=== PATIENT | female | born 1945 | race Two or more races ===

== ENCOUNTER 2021-03-12 23:03 | Inpatient (IN) | payer MEDICARE, OTHER ==
[~2021-03-12] VITALS: Ht 149.9 cm; Wt 88.7 kg
--- NOTE | 2021-03-12 23:10 | NUR ---
BIBRA 89 FROM HOME FOR UNABLE TO FINISH SENTENCES PER FAMILY. DENIES PAIN. RESPIRATION REGULAR AND UNLABORED. ATTACHED ON A MONITOR. WARM BLANKET RPOVIDED. WILL CONTINUE TO MONITOR THE PATIENT.
--- NOTE | 2021-03-12 23:20 | NUR ---
urine collected and sent to the lab
[2021-03-12] MEDS ORDERED: IV NS 0.9% 500 ML BAG IV ONE (23:30)
[2021-03-12 23:43] LABS: BASOPHILS # (AUTO) 0.1 /CMM (0.0-0.2); BASOPHILS % (AUTO) 0.8 % (0.0-2.0); EOSINOPHILS % (AUTO) 1.6 % (0.0-6.0); HEMATOCRIT 40 % (33-45); HEMOGLOBIN 13.5 g/dL (11.5-14.8); LYMPHOCYTES # (AUTO) 2.2 /CMM (0.8-4.8); LYMPHOCYTES % (AUTO) 20.4 % (20.0-44.0); MEAN CORPUSCULAR HGB CONC 34 g/dl (31.0-36.0); MEAN CORPUSCULAR VOLUME 93 fL (82-100); MONOCYTES # (AUTO) 0.8 /CMM (0.1-1.30); MONOCYTES % (AUTO) 7.6 % (2.0-12.0); NEUTROPHILS # (AUTO) 7.6 /CMM (1.8-8.9); NEUTROPHILS % (AUTO) 69.6 % (43.0-81.0); PLATELET COUNT (AUTO) 330 /CMM (150-450); RED BLOOD CELL COUNT(AUTO) 4.31 MIL/uL (4.0-5.2); WHITE BLOOD COUNT (AUTO) 10.9 K/uL (4.3-11.0)
[2021-03-12 23:50] LABS: BILIRUBIN,URINE NEGATIVE (NEGATIVE); COLOR,URINE YELLOW (YELLOW); LEUKOCYTE ESTERASE ,URINE NEGATIVE (NEGATIVE); NITRITE, URINE NEGATIVE (NEGATIVE); PROTEIN,URINE NEGATIVE (NEGATIVE); UGLUCOSE 100 MG/DL mg/dL (NEGATIVE); UROBILINOGEN,URINE 0.2 EU/dL (0.2)
[2021-03-12 23:54] LABS: CALCIUM, SERUM 8.6 mg/dL (8.5-10.1); CARBON DIOXIDE 25 mmol/L (21-32); CHLORIDE 103 mmol/L (98-107); CREATININE 0.7 mg/dL (0.6-1.3); GLUCOSE 247 mg/dL (74-106); POTASSIUM 4.2 mmol/L (3.5-5.1); SODIUM SERUM 137 mmol/L (136-145); UREA NITROGEN, BLOOD 18 mg/dL (7-18)
[2021-03-13] VITALS (10 sets, daily range): BP systolic 129–162; BP diastolic 62–86
--- NOTE | 2021-03-13 00:04 | NUR ---
LACTIC ACID 2.3
[2021-03-13 00:08] LABS: ALANINE AMINOTRANSFERASE 20 U/L (12-78); ALBUMIN 3.6 g/dL (3.4-5.0); ALKALINE PHOSPHATASE 103 U/L (46-116); ASPARTATE AMINOTRANSFERASE 13 U/L (15-37); B-TYPE NATRIURETIC PEPTIDE 67 PG/ML (0-125); BILIRUBIN,DIRECT 0.1 mg/dL (0.0-0.2); BILIRUBIN,TOTAL 0.2 mg/dL (0.2-1.0); TOTAL PROTEIN, SERUM 7.9 g/dL (6.4-8.2)
--- NOTE | 2021-03-13 00:28 | NUR ---
COVID ANTIGEN TEST AND MRSA TEST DONE SPECIMEN SEND TO LAB
--- NOTE | 2021-03-13 00:55 | NUR ---
[facility]) [phone]
[2021-03-13] MEDS ORDERED: ACETAMINOPHEN 325 MG TABLET PO PRN (01:00)
[2021-03-13] MEDS ORDERED: MAGNESIUM HYDROXIDE 30 ML UDC PO PRN (01:00)
[2021-03-13] MEDS ORDERED: IV NS 0.9% 1,000 ML IV PRN (01:00)
[2021-03-13] MEDS ORDERED: HYDROCODONE/APAP 5/325MG TABLET PO PRN (01:00)
[2021-03-13] MEDS ORDERED: ONDANSETRON HCL/PF 4 MG/2 ML VIAL IVP PRN (01:00)
[2021-03-13] MEDS ORDERED: Z GUARD REMEDY 2 OZ OINT TP PRN (01:00)
[2021-03-13] MEDS ORDERED: MAG HYDROX/AL HYDROX/SIMETH 30 ML UDC PO PRN (01:00)
[2021-03-13] MEDS ORDERED: ZOLPIDEM TARTRATE 5 MG TABLET PO PRN (01:00)
[2021-03-13] MEDS ORDERED: HEPARIN SODIUM, PORCINE 5000 UNITS/1 ML VIAL SQ SCH (01:00)
[2021-03-13] MEDS ORDERED: GLIP5TAB13 PO (01:02)
[2021-03-13] MEDS ORDERED: AMLO5TAB4 PO (01:02)
--- NOTE | 2021-03-13 01:39 | NUR ---
TELE 323-3
--- NOTE | 2021-03-13 01:45 | NUR ---
REPORT GIVEN TO YEN BURK FOR SAADIA
--- NOTE | 2021-03-13 02:10 | NUR ---
TRANSFER PT TO ROOM 311-2 VIA ACLS PROTOCOL PT IS ALERT ORIENTED X3 NO SOB NOTED, NO PAIN COMPLAINT, ABLE TO AMBULATE WITH ASSISTANCE TO THE BATHROOM, RECEIVING NURSE AT BEDSIDE BELONGINGS ENDORSED
--- NOTE | 2021-03-13 02:12 | NUR ---
FACER OPERATOR ADMITTING NOTE PATIENT ADMITTED IN TELE RM 311-2. PATIENT AMBULATORY WITH ASSIST. GAIT UNSTEADY. SOB NOTED UPON EXERTION. CURRENTLY ON ROOM AIR WITH O2 SATURATION 94%. PATIENT DOES NOT COMPLAIN OF PAIN, N/V AT THIS TIME. PATIENT IS A/O X 3, WITH PERIODS OF CONFUSION. PATIENT ABLE TO MAKE NEEDS KNOWN. LEFT WRIST 20 G AND R AC 18 G PATENT AND INTACT, FLUSHING WELL. ORIENTED PATIENT TO THE ROOM, UNIT, PRIMARY NURSE, TASHA. WILL MONITOR PATIENT CLOSELY.
--- NOTE | 2021-03-13 03:00 | NUR ---
RECEIVED NOTIFICATION FROM LAB OF CRITICAL VALUE LACTIC ACID 2.1. NOTIFIED POWDER MONKEY
--- NOTE | 2021-03-13 06:00 | NUR ---
NOTICED PATIENT WAS HAVING A HARD TIME USING HER RIGHT HAND. ASKED HER TO SMILE NOTICED RIGHT FACIAL DROOP. RIGHT SIDED WEAKNESS. NOTIFIED OLMOS CHARGE NURSE, SHE CALLED [facility] ICU NURSE TO EVALUATE.
--- NOTE | 2021-03-13 06:07 | NUR ---
CHARGE NURSE CALLED CODE STROKE VS- BP 153/75, RR 22, HR 86, O2 94 ON 2 L, BS 229.
--- NOTE | 2021-03-13 06:10 | NUR ---
MIGDALIA, RADIOLOGY, LABS CAME
--- NOTE | 2021-03-13 06:13 | NUR ---
PATIENT WENT DOWN TO CT
--- NOTE | 2021-03-13 06:30 | NUR ---
PATIENT TRANSFERRED TO ICU FROM CT
[2021-03-13 06:36] LABS: BASOPHILS # (AUTO) 0.1 /CMM (0.0-0.2); BASOPHILS % (AUTO) 0.6 % (0.0-2.0); EOSINOPHILS % (AUTO) 0.1 % (0.0-6.0); HEMATOCRIT 40 % (33-45); HEMOGLOBIN 13.4 g/dL (11.5-14.8); LYMPHOCYTES # (AUTO) 1.3 /CMM (0.8-4.8); LYMPHOCYTES % (AUTO) 10.9 % (20.0-44.0); MEAN CORPUSCULAR HGB CONC 34 g/dl (31.0-36.0); MEAN CORPUSCULAR VOLUME 93 fL (82-100); MONOCYTES # (AUTO) 0.5 /CMM (0.1-1.30); MONOCYTES % (AUTO) 4.2 % (2.0-12.0); NEUTROPHILS # (AUTO) 10.3 /CMM (1.8-8.9); NEUTROPHILS % (AUTO) 84.2 % (43.0-81.0); PLATELET COUNT (AUTO) 317 /CMM (150-450); WHITE BLOOD COUNT (AUTO) 12.3 K/uL (4.3-11.0)
[2021-03-13 06:46] LABS: CALCIUM, SERUM 8.5 mg/dL (8.5-10.1); CREATININE 0.6 mg/dL (0.6-1.3)
--- NOTE | 2021-03-13 07:07 | NUR ---
called pt family member sadie, was provided with pt son [phone], vm left. waiting for call back
--- NOTE | 2021-03-13 07:28 | NUR ---
PER MD ORDERS ALTEPLASE (TPA) BOLUS WAS GIVEN 8.0 MG (8ML) IVP OVER 1 MINUTE AT 0727, DRAWN UP AND VERIFIED WITH PHARMACY BY TRACI BURK. RUSSEL BURK VERIFIED DOSE WITH TRACI PER MD ORDERS. FOLLOWING BOLUS ALTEPLASE GTT STARTED, 72.2 MG OVER 1 HOUR PER MD ORDER, VERIFIED WITH PHARMACY AND DRAWN UP BY TRACI RN, VERIFIED BY RUSSEL BURK AND INITIATED BY RUSSEL BURK AND SPIKE BURK. DOSE WAS UNABLE TO BE DOCUMENTED BY [employer] ON THE [employer] D/T GLITCH IN SYSTEM. RUSSEL BURK SPOKE TO PHARMACIST DEISI WHO STATED TO DOCUMENT THE ADMINISTRATION OF ALTEPLASE VIA NOTES.
[2021-03-13] MEDS ORDERED: ALTEPLASE IV ONE (07:30)
[2021-03-13] MEDS ORDERED: WATER FOR INJECTION STERILE IV ONE (07:30)
--- NOTE | 2021-03-13 07:30 | NUR ---
RN RECEIVING NOTES RECEIVED PATIENT A&OX3, ZIMBABWEAN SPEAKING. BEING PREPARED FOR CTA. T-PA STARTED AT RIGHT ARM. ANOTHER PERIPHERAL LINE ON LEFT AC. NEURO CHECK AND NIHSS DONE. WILL CONTINUE CARES.
[2021-03-13] MEDS ORDERED: IV NS 0.9% 250 ML IV ONE ×2 (07:40→07:54)
[2021-03-13] MEDS ORDERED: IOHEXOL-350 100 ML VIAL IV ONE (07:40)
--- NOTE | 2021-03-13 07:50 | NUR ---
0600 Was called to come and assess patient in rm 311 bed2.Patient awake alert with slurred speech able to state name,age,birthday,month and day.Denies pain.Asked to smile noted right facial droop and right arm weakness.VSS.FSBS 229.Called Martha VIGIL she said call code stroke.Brought to CT.CT Head done. Blood works done then transferred patient to ICU per supervisor malt house,Ginger.0700 Tele Neurologist assessing patient in room 258 ICU.Mratha VIGIL able to talked to tele neurologist via phone.Orders received. doing his morning rounds also able to tele neurologist,.VSS.SR.O2 2LNC saturation wnl. NAD.Report given to Brenna merino RN for further care and management.
--- NOTE | 2021-03-13 08:00 | NUR ---
RN NOTE ESCORTED TO FOR CTA. PATIENT IN STABLE CONDITION DURING TRANSPORT.
--- NOTE | 2021-03-13 08:45 | NUR ---
RN NOTE tPA INFUSION COMPLETED. RE-ASSESSED NIHSS.
--- NOTE | 2021-03-13 08:55 | NUR ---
RN NOTE REPORT GIVEN TO BHARGAVI COLVIN OF [facility]. TRANSFER PROTOCOLS INITIATED. LEFT THE UNIT 904 VIA ACLS PROTOCOLS IN GUARDED CONDITION.
[2021-03-13] MEDS ORDERED: ALTEPLASE 100 MG in WATER FOR INJECTION,STERILE 100 ML IV ONE (09:00)
[2021-03-13 11:41] LABS: TRIGLYCERIDES 84 mg/dL (30-150)
[2021-03-13 11:42] LABS: CHOLESTEROL 150 mg/dL (<200); HDL CHOLESTEROL 43 mg/dL (40-60); LDL 86 mg/dL (0-99)
== END 2021-03-13 10:49 | disposition short-term general hospital (02) | DRG 66 ==
LOC: ER 23:05 → TELE 03-13 01:40 → ICU 03-13 06:35
PROVIDERS: ADMIT Internal Medicine; ATTEND Internal Medicine
DX: I63.9 Cerebral infarction, unspecified (principal); I10 Essential (primary) hypertension; Z79.84 Long term (current) use of oral hypoglycemic drugs; R29.711 NIHSS score 11; E11.9 Type 2 diabetes mellitus without complications
CPT/HCPCS: 36415; 70450-TC; 70496-TC; 70498-TC; 71045-TC; 80048-TC; 80061-TC; 80076-TC; 83605-TC; 83880; 84484-TC; 85025-TC; 85730-TC; 86850-TC; 87040-TC; 87081-TC; 87086-TC; C9803; G0378; J1644; J2997; J7030; J7040; J7050; Q9967